=== PATIENT | female | born 1955 | race Caucasian/White ===

== ENCOUNTER 2017-12-27 09:19 | Emergency (ER) | payer OTHER ==
[~2017-12-27] VITALS: Ht 154.9 cm; Wt 78.5 kg
[~2017-12-27 09:19] MED LIST: FENO135C PO; GLYB5TAB3 PO; LEVO100T PO; LISI5TAB7 PO; METF-163 PO; PIOG45TA20 PO; ZOLP10TA3 PO
[2017-12-27 09:22] VITALS: BP 131/70
[2017-12-27] MEDS ORDERED: DOXA2TAB9 PO (10:13)
[2017-12-27] MEDS ORDERED: ALPR0.25 PO (10:13)
[2017-12-27] MEDS ORDERED: AMLO10TA2 PO (10:13)
[2017-12-27] MEDS ORDERED: LABE200T3 PO (10:13)
[2017-12-27] MEDS ORDERED: OMEP-110 PO (10:13)
[2017-12-27] MEDS ORDERED: ALBU2.5V11 NEB (10:13)
[2017-12-27] MEDS ORDERED: PRAV20TA2 PO (10:13)
[2017-12-27] MEDS ORDERED: ASPI-515 PO (10:13)
[2017-12-27] MEDS ORDERED: SPIR50TA2 PO (10:13)
[2017-12-27] MEDS ORDERED: HYDR-3307 PO (10:13)
== END 2017-12-27 10:56 | disposition home or self-care (01) ==
LOC: ED 10:25
DX: S82.61XD Displaced fracture of lateral malleolus of right fibula, subsequent encounter for closed fracture with routine healing (principal); E11.65 Type 2 diabetes mellitus with hyperglycemia; E78.00 Pure hypercholesterolemia, unspecified; I10 Essential (primary) hypertension; X58.XXXD Exposure to other specified factors, subsequent encounter
CPT/HCPCS: 99281